=== PATIENT | male | born 1985 | race Caucasian/White ===

== ENCOUNTER 2025-03-25 22:54 | Emergency (ER) | payer MEDICAID ==
[~2025-03-25] VITALS: Ht 172.7 cm; Wt 95.0 kg
[2025-03-26 00:01] VITALS: BP 154/95; PULSE 91; RESP 18; O2SAT 97
[2025-03-26] MEDS ORDERED: AMOX875T4 PO (00:26)
[2025-03-26] MEDS ORDERED: ACET500T58 PO (00:26)
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
--- NOTE | 2025-03-26 01:01 | DVH ---
Procedure: XY NECK FOR SOFT TISSUE Exam Date: 03/26/2025 12:15 AM History: left anterior neck pain Comparison Study: None Technique: Soft Tissue Neck: AP and lateral views. Findings: Normal appearance of the prevertebral soft tissues and aerodigestive tract. Osseous structures in the upper chest are unremarkable. Impression: Unremarkable neck radiographs.
[2025-03-26 01:10] VITALS: TEMP 97.7
== END 2025-03-26 01:18 | disposition home or self-care (01) ==
LOC: ER 22:54
DX: S10.93XA Contusion of unspecified part of neck, initial encounter (principal); J02.9 Acute pharyngitis, unspecified; X58.XXXA Exposure to other specified factors, initial encounter; Y93.89 Activity, other specified; Y92.89 Other specified places as the place of occurrence of the external cause; Y99.8 Other external cause status
CPT/HCPCS: 70360